=== PATIENT | male | born 1970 | race Caucasian/White ===

== ENCOUNTER 2020-10-09 08:35 | Observation (INO) ==
[2020-10-09] MEDS ORDERED: 0.9 % Sodium Chloride 1,000 ML IVC ONE ×2 (09:10→11:55)
[2020-10-09 09:23] LABS: Basophils # 0.1 K/mcL (0.0-0.2); Basophils % 1.2 %; Eosinophils # 0.2 K/mcL (0.0-0.6); Eosinophils % 3.8 %; Hemoglobin 15.8 g/dL (12.9-16.9); Immature Granulocytes % 0.7 % (0-4); Lymphocytes # 1.3 K/mcL (0.6-4.6); Lymphocytes % 31.1 %; Mean Corpuscular HGB Conc 33.6 g/dL (31.6-35.5); Mean Corpuscular Hemoglobin 31.5 pg (28.0-33.3); Mean Corpuscular Volume 93.8 fL (83.0-100.0); Mean Platelet Volume 9.5 fL (9.4-12.4); Monocytes # 0.5 K/mcL (0.0-1.3); Monocytes % 12.7 %; Neutrophils # 2.1 K/mcL (1.6-8.9); Platelet Count 225 K/mcL (140-400); Red Blood Count 5.01 M/mcL (4.19-5.50); Red Cell Distribution Width 13.1 % (11.5-14.5); Segmented Neutrophils % 50.5 %; White Blood Count 4.2 K/mcL (4.3-11.1)
[2020-10-09 09:26] LABS: INR 1.1; Prothrombin Time 12.9 Seconds (9.4-12.1)
[2020-10-09 09:29] LABS: Activated Partial Thrombo Time 32.2 Seconds (26.0-36.0)
[2020-10-09 10:57] LABS: VBG HCO3 24 mEq/L (21-27); VBG PCO2 43 mmHg (41-51); VBG PH 7.35 pH Units (7.32-7.42); VBG PO2 45 mmHg (25-50)
[2020-10-09 11:00] LABS: Alanine Aminotransferase 17 Units/L (7-52); Albumin/Globulin Ratio 1.2 (1.1-2.2); Alkaline Phosphatase 87 Units/L (34-104); Aspartate Amino Transferase 12 Units/L (13-39); BUN/Creatinine Ratio 29 (6-26); Bilirubin,Direct 0.1 mg/dL (0.0-0.2); Bilirubin,Indirect 0.6 mg/dL (0.0-1.0); Bilirubin,Total 0.7 mg/dL (0.3-1.0); Blood Urea Nitrogen 20 mg/dL (6-20); C-Reactive Protein 143 mg/L (Less than 10); Calcium 9.6 mg/dL (8.6-10.3); Carbon Dioxide 20 mEq/L (23-29); Chloride 92 mEq/L (98-107); Ferritin 346 ng/mL (20-250); Globulin 3.4 g/dL (2.4-3.5); Glucose 235 mg/dL (70-105); Lactate Dehydrogenase 125 Units/L (140-271); Magnesium 1.9 mg/dL (1.6-2.6); Osmolality,Calculated 278 (280-300); Phosphorous 3.3 mg/dL (2.7-4.5); Sodium 129 mEq/L (136-145); Total Protein 7.4 g/dL (6.4-8.9); Troponin I < 0.03 ng/mL (< 0.04); eGFR For African Americans > 60 (> 60); eGFR For Non-African Americans > 60 (> 60)
[2020-10-09] MEDS ORDERED: Aspirin 81 MG TAB.CHEW PO ONE (11:58)
[2020-10-09] MEDS ORDERED: Naloxone 0.4 MG/ML INJ IVP PRN (12:51)
[2020-10-09] MEDS ORDERED: Ondansetron 4 MG/2 ML VIAL IVP PRN (12:51)
[2020-10-09] MEDS ORDERED: Acetaminophen 325 MG TABLET PO PRN (12:51)
[2020-10-09] MEDS ORDERED: *HR* Dextrose 50 % in Water (Vial) 50 ML VIAL IVP PRN (12:56)
[2020-10-09] MEDS ORDERED: D5% in Water 1,000 ML IVC PRN (12:56)
[2020-10-09] MEDS ORDERED: Dextrose Gel 15 GM/37.5 ML TUBE PO PRN ×2 (12:56)
[2020-10-09] MEDS ORDERED: Insulin LISPRO 300 UNITS/3 ML VIAL SUBQ SCH ×2 (12:57→21:00)
[2020-10-09] MEDS ORDERED: 0.9 % Sodium Chloride 1,000 ML IVC SCH (13:00)
[2020-10-09] MEDS: *HR* Heparin 5,000 UNIT/ML VIAL SQ SCH ×2 (14:43→19:45)
[2020-10-09] MEDS ORDERED: Isovue-370 500 ML BOTTLE IVP ONE (15:04)
[2020-10-09] MEDS ORDERED: ALPRAZolam 1 MG TABLET PO PRN (15:06)
[2020-10-09 15:07] LABS: Adenovirus Not Detected (Not Detect); Bordetella Pertussis Not Detected (Not Detect); Chlamydophila pneumoniae Not Detected (Not Detect); Coronavirus 229E Not Detected (Not Detect); Coronavirus HKU1 Not Detected (Not Detect); Coronavirus NL63 Not Detected (Not Detect); Coronavirus OC43 Not Detected (Not Detect); Human Metapneumovirus Not Detected (Not Detect); Human Rhinovirus/Enterovirus Not Detected (Not Detect); Influenza A Subtype 2009 H1 Not Detected (Not Detect); Influenza B Not Detected (Not Detect); Mycoplasma pneumoniae Not Detected (Not Detect); Parainfluenza Virus 1 Not Detected (Not Detect); Parainfluenza Virus 2 Not Detected (Not Detect); Parainfluenza Virus 3 Not Detected (Not Detect); Parainfluenza Virus 4 Not Detected (Not Detect); Respiratory Syncytial Virus Not Detected (Not Detect); SARS-CoV-2 Not Detected (Not Detect)
[2020-10-09 16:27] LABS: BUN/Creatinine Ratio 30 (6-26); Blood Urea Nitrogen 17 mg/dL (6-20); Calcium 9.1 mg/dL (8.6-10.3); Carbon Dioxide 22 mEq/L (23-29); Chloride 100 mEq/L (98-107); Glucose 141 mg/dL (70-105); Osmolality,Calculated 282 (280-300); Potassium 3.8 mEq/L (3.5-5.1); Sodium 134 mEq/L (136-145); eGFR For African Americans > 60 (> 60); eGFR For Non-African Americans > 60 (> 60)
[2020-10-09 16:29] LABS: Troponin I < 0.03 ng/mL (< 0.04)
[2020-10-09 17:06] LABS: Bilirubin,Urine Negative (Negative); Blood,Urine Negative (Negative); Clarity,Urine Clear (Clear); Color,Urine Light-Yellow (Yellow); Glucose,Urine (UA) >=1000 mg/dL (Normal); Ketones,Urine 60 mg/dL (Negative); Leukocyte Esterase,Urine Negative (Negative); Nitrite,Urine Negative (Negative); PH,Urine 5.5 pH Units (5.0-8.0); Protein,Urine Negative (Neg-Trace); RBC,Urine 0-3 per hpf (0-3); Specific Gravity,Urine > 1.030 (1.010-1.025); Squamous Epithelial Cell,Urine Few per hpf (None-Few); Urobilinogen,Urine Normal (Normal); WBC,Urine 0-3 per hpf (0-3)
[2020-10-09 17:15] LABS: Amphetamine Screen,Urine Negative ng/mL (Cutoff=1000); Barbiturate Screen,Urine Negative ng/mL (Cutoff=200); Benzodiazepines Screen,Urine Negative ng/mL (Cutoff=200); Cannabinoid Screen,Urine Negative ng/mL (Cutoff = 50); Cocaine Screen,Urine Negative ng/mL (Cutoff= 300); Opiate Screen,Urine Negative ng/mL (Cutoff=300); Phencyclidine Screen,Urine Negative ng/mL (Cutoff=25)
[2020-10-09] MEDS: amLODIPine 5 MG TABLET PO SCH (19:39)
[2020-10-09] MEDS: Metoprolol XL (24 HR) Succ 50 MG TAB.ER.24H PO SCH (19:45)
[2020-10-10 00:37] LABS: Basophils # 0.1 K/mcL (0.0-0.2); Basophils % 1.5 %; Eosinophils # 0.2 K/mcL (0.0-0.6); Eosinophils % 4.3 %; Hematocrit 44.1 % (37.5-50.1); Hemoglobin 15.2 g/dL (12.9-16.9); Immature Granulocytes % 0.5 % (0-4); Lymphocytes # 1.4 K/mcL (0.6-4.6); Mean Corpuscular HGB Conc 34.5 g/dL (31.6-35.5); Mean Corpuscular Hemoglobin 31.3 pg (28.0-33.3); Mean Corpuscular Volume 90.9 fL (83.0-100.0); Mean Platelet Volume 9.4 fL (9.4-12.4); Monocytes # 0.4 K/mcL (0.0-1.3); Monocytes % 10.5 %; Platelet Count 236 K/mcL (140-400); Red Blood Count 4.85 M/mcL (4.19-5.50); Red Cell Distribution Width 12.9 % (11.5-14.5); Segmented Neutrophils % 49.2 %
[2020-10-10 01:01] LABS: BUN/Creatinine Ratio 25 (6-26); Blood Urea Nitrogen 17 mg/dL (6-20); Calcium 9.6 mg/dL (8.6-10.3); Carbon Dioxide 22 mEq/L (23-29); Chloride 94 mEq/L (98-107); Glucose 222 mg/dL (70-105); Osmolality,Calculated 278 (280-300); Phosphorous 2.8 mg/dL (2.7-4.5); Potassium 3.8 mEq/L (3.5-5.1); Sodium 130 mEq/L (136-145); eGFR For African Americans > 60 (> 60); eGFR For Non-African Americans > 60 (> 60)
[2020-10-10 01:14] LABS: Chol/HDL Ratio 17.6 (0-4.9); Cholesterol 404 mg/dL (< 200); HDL Cholesterol 23 mg/dL (40-59); Thyroid Stimulating Hormone 4.298 mcIU/mL (0.340-5.600); Triglycerides 2124 mg/dL (< 150)
[2020-10-10 01:16] LABS: Estimated Average Glucose 240 mg/dl
[2020-10-10] MEDS: *HR* Heparin 5,000 UNIT/ML VIAL SQ SCH ×3 (05:19→22:25)
[2020-10-10] MEDS ORDERED: Regadenoson 0.4 MG/5 ML SYRINGE IVP ONE (06:36)
[2020-10-10] MEDS ORDERED: Insulin LISPRO 300 UNITS/3 ML VIAL SUBQ SCH ×4 (07:40→21:15)
[2020-10-10] MEDS: Metoprolol XL (24 HR) Succ 50 MG TAB.ER.24H PO SCH ×2 (10:13→22:24)
[2020-10-10] MEDS: Fenofibrate 54 MG TABLET PO SCH (10:13)
[2020-10-10] MEDS: amLODIPine 5 MG TABLET PO SCH (10:13)
[2020-10-10] MEDS: Aspirin Enteric Coated 81 MG Tablet PO SCH (10:14)
[2020-10-10] MEDS: Divalproex (12 HR) 250 MG TABLET PO SCH ×2 (10:14→22:25)
[2020-10-10 10:35] LABS: BUN/Creatinine Ratio 25 (6-26); Blood Urea Nitrogen 16 mg/dL (6-20); Calcium 9.5 mg/dL (8.6-10.3); Carbon Dioxide 19 mEq/L (23-29); Chloride 96 mEq/L (98-107); Glucose 260 mg/dL (70-105); Osmolality,Calculated 284 (280-300); Potassium 4.4 mEq/L (3.5-5.1); Sodium 132 mEq/L (136-145); eGFR For African Americans > 60 (> 60); eGFR For Non-African Americans > 60 (> 60)
[2020-10-10] MEDS: Insulin DETEMIR 100 UNIT/ML X5UNITS SUBQ SCH (13:26)
[2020-10-10] MEDS: Insulin LISPRO 300 UNITS/3 ML VIAL SUBQ SCH (16:53)
[2020-10-11 02:26] LABS: Basophils # 0.1 K/mcL (0.0-0.2); Basophils % 1.2 %; Eosinophils # 0.2 K/mcL (0.0-0.6); Eosinophils % 4.5 %; Hematocrit 45.1 % (37.5-50.1); Hemoglobin 15.1 g/dL (12.9-16.9); Immature Granulocytes % 0.7 % (0-4); Lymphocytes # 1.6 K/mcL (0.6-4.6); Mean Corpuscular HGB Conc 33.5 g/dL (31.6-35.5); Mean Corpuscular Hemoglobin 31.8 pg (28.0-33.3); Mean Corpuscular Volume 94.9 fL (83.0-100.0); Mean Platelet Volume 9.1 fL (9.4-12.4); Monocytes # 0.8 K/mcL (0.0-1.3); Monocytes % 18.5 %; Neutrophils # 1.6 K/mcL (1.6-8.9); Platelet Count 215 K/mcL (140-400); Red Blood Count 4.75 M/mcL (4.19-5.50); Red Cell Distribution Width 13.1 % (11.5-14.5); Segmented Neutrophils % 37.1 %; White Blood Count 4.3 K/mcL (4.3-11.1)
[2020-10-11 03:06] LABS: BUN/Creatinine Ratio 24 (6-26); Blood Urea Nitrogen 17 mg/dL (6-20); Calcium 8.7 mg/dL (8.6-10.3); Carbon Dioxide 17 mEq/L (23-29); Chloride 97 mEq/L (98-107); Glucose 218 mg/dL (70-105); Osmolality,Calculated 274 (280-300); Potassium 3.8 mEq/L (3.5-5.1); Sodium 128 mEq/L (136-145); eGFR For African Americans > 60 (> 60); eGFR For Non-African Americans > 60 (> 60)
[2020-10-11] MEDS: *HR* Heparin 5,000 UNIT/ML VIAL SQ SCH ×2 (05:30→12:56)
[2020-10-11] MEDS: Fenofibrate 54 MG TABLET PO SCH (08:28)
[2020-10-11] MEDS: Aspirin Enteric Coated 81 MG Tablet PO SCH (08:28)
[2020-10-11] MEDS: Insulin DETEMIR 100 UNIT/ML X5UNITS SUBQ SCH (08:29)
[2020-10-11] MEDS: Metoprolol XL (24 HR) Succ 50 MG TAB.ER.24H PO SCH (08:29)
[2020-10-11] MEDS: amLODIPine 5 MG TABLET PO SCH (08:29)
[2020-10-11] MEDS: Insulin LISPRO 300 UNITS/3 ML VIAL SUBQ SCH ×2 (08:29→12:55)
[2020-10-11] MEDS: Divalproex (12 HR) 250 MG TABLET PO SCH (08:29)
[2020-10-11] MEDS ORDERED: *HR* Pioglitazone 15 MG TABLET PO SCH (09:00)
[2020-10-11] MEDS ORDERED: *HR* Glimepiride 4 MG TABLET PO SCH (09:00)
[2020-10-11] MEDS ORDERED: allopurinoL 300 MG TABLET PO SCH (09:00)
[2020-10-11] MEDS ORDERED: 0.9 % Sodium Chloride 500 ML IVC SCH (09:30)
[2020-10-11 12:04] VITALS: BP 136/87
[2020-10-11 16:12] LABS: BUN/Creatinine Ratio 18 (6-26); Blood Urea Nitrogen 18 mg/dL (6-20); Calcium 9.3 mg/dL (8.6-10.3); Carbon Dioxide 19 mEq/L (23-29); Chloride 96 mEq/L (98-107); Glucose 217 mg/dL (70-105); Osmolality,Calculated 274 (280-300); Sodium 128 mEq/L (136-145); eGFR For African Americans > 60 (> 60); eGFR For Non-African Americans > 60 (> 60)
== END 2020-10-11 17:12 | disposition home or self-care (01) ==
LOC: EMEROOARM 08:35 → 3BNU 08:35 → SUATTDRO 12:23 → 3BNU 13:09
PROVIDERS: ADMIT Internal Medicine; ATTEND Internal Medicine